=== PATIENT | female | born 1950 | race Caucasian/White ===

== ENCOUNTER → 2021-06-18 | Outpatient (CLI) | payer MEDICARE, OTHER ==
[~2021-06-18] MED LIST: AMLODIPINE BESYL5 MG PO; ATORVASTATIN CA20 MG PO; CETIRIZINE HCL10 MG PO; COLACE 100MG C100 MG PO; LEVOTHYROXINE75 MCG PO; METOPROLOL TART25 MG PO; MONTELUKAST SOD10 MG PO; PERCOCET 5/325 T1 EA PO
== END ==
LOC: KOH-I 15:30
DX: M79.605 Pain in left leg (principal)
CPT/HCPCS: 93971

== ENCOUNTER → 2022-05-10 | Outpatient (CLI) | payer MEDICARE, OTHER | LOC: KOH-I 10:31 | DX: M25.512 Pain in left shoulder (principal); M25.511 Pain in right shoulder | CPT/HCPCS: 73030 ==